=== PATIENT | female | born 1985 | race Caucasian/White ===

== ENCOUNTER 2018-08-03 07:52 | Outpatient (CLI) | payer OTHER | END 2018-08-03 07:54 | disposition home or self-care (01) | LOC: SONOGRAMA 07:52 | DX: E04.1 Nontoxic single thyroid nodule (principal); M50.20 Other cervical disc displacement, unspecified cervical region ==

== ENCOUNTER 2021-03-26 08:00 | Outpatient (CLI) | payer OTHER | END 2021-03-26 08:30 | disposition home or self-care (01) | LOC: PPH VACUNA 08:00 | PROVIDERS: ATTEND Emergency Medicine Pediatric Emergency Medicine | DX: Z23 Encounter for immunization (principal) ==

== ENCOUNTER 2021-08-08 08:31 | Outpatient (CLI) | payer OTHER | END 2021-08-08 08:32 | disposition home or self-care (01) | LOC: MAMO-SONO 08:31 | PROVIDERS: ATTEND Obstetrics & Gynecology | DX: Z12.31 Encounter for screening mammogram for malignant neoplasm of breast (principal); N60.11 Diffuse cystic mastopathy of right breast; N60.12 Diffuse cystic mastopathy of left breast ==

== ENCOUNTER 2024-04-26 14:50 | Outpatient (CLI) | payer OTHER | END 2024-04-26 14:52 | disposition home or self-care (01) | LOC: RAD 14:50 | PROVIDERS: ATTEND Emergency Medicine Pediatric Emergency Medicine | DX: N64.4 Mastodynia (principal); I10 Essential (primary) hypertension; Z01.810 Encounter for preprocedural cardiovascular examination; E03.9 Hypothyroidism, unspecified; E11.51 Type 2 diabetes mellitus with diabetic peripheral angiopathy without gangrene; Z12.11 Encounter for screening for malignant neoplasm of colon; Z12.31 Encounter for screening mammogram for malignant neoplasm of breast ==

== ENCOUNTER 2024-07-13 08:51 | Outpatient (CLI) | payer OTHER | END 2024-07-13 09:05 | disposition home or self-care (01) | LOC: SONOGRAMA 08:51 | PROVIDERS: ATTEND Emergency Medicine Pediatric Emergency Medicine | DX: E03.9 Hypothyroidism, unspecified (principal); E55.9 Vitamin D deficiency, unspecified; E07.9 Disorder of thyroid, unspecified ==

== ENCOUNTER 2024-09-14 08:08 | Outpatient (CLI) | payer OTHER | END 2024-09-14 08:18 | disposition home or self-care (01) | LOC: MRI 08:08 | PROVIDERS: ATTEND Obstetrics & Gynecology | DX: D35.2 Benign neoplasm of pituitary gland (principal) | CPT/HCPCS: 70553 ==